=== PATIENT | male | born 1945 | race Caucasian/White ===

== ENCOUNTER → 2022-05-18 11:01 | Outpatient (CLI) | payer MEDICARE, SELFPAY ==
--- NOTE | ~2022-05-18 | XR_ITS ---
XR shoulder RT min 2V 05/18/2022 11:40 Indication: Right shoulder pain Procedure: 4 views right shoulder Comparison: No prior studies for comparison. 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 No fracture, subluxation or dislocation. No soft tissue abnormality. No foreign bodies. Impression: 1: Mild polyarticular osteoarthritis of the right shoulder. Reviewed, dictated and finalized at location B. Impression: 1: Mild polyarticular osteoarthritis of the right shoulder.
== END ==
PROVIDERS: PCP Nurse Practitioner Family; Visit Provider Nurse Practitioner Family
DX: M19.011 Primary osteoarthritis, right shoulder (principal)
CPT/HCPCS: 73030